=== PATIENT | male | born 1990 | race Two or more races ===

== ENCOUNTER 2025-03-23 16:16 | Emergency (ER) | payer OTHER ==
[~2025-03-23] VITALS: Ht 185.4 cm; Wt 118.8 kg
[2025-03-23 16:28] VITALS: BP 147/94; TEMP 98.3; O2SAT 100
[2025-03-23] MEDS ORDERED: TETRAcaine 5 ML BOTTLE ONE (17:04)
[2025-03-23] MEDS ORDERED: FLUORESCEIN SODIUM OPHTH 1 EA STRIP ONE (17:04)
[2025-03-23] MEDS: TETRAcaine 5 ML BOTTLE EACHEYE ONE (17:04)
[2025-03-23] MEDS: FLUORESCEIN SODIUM OPHTH 1 EA STRIP OP ONE (17:04)
[2025-03-23] MEDS ORDERED: POLY10DR OP (17:11)
== END 2025-03-23 17:16 | disposition home or self-care (01) ==
LOC: ER 16:25
DX: S05.02XA Injury of conjunctiva and corneal abrasion without foreign body, left eye, initial encounter (principal); F17.200 Nicotine dependence, unspecified, uncomplicated; X58.XXXA Exposure to other specified factors, initial encounter; Y93.89 Activity, other specified; Y92.89 Other specified places as the place of occurrence of the external cause; Y99.8 Other external cause status